=== PATIENT | male | born 1945 | race Caucasian/White ===

== ENCOUNTER 2017-10-26 12:22 | Outpatient (CLI) | payer MEDICARE ==
[2017-10-26 12:53] LABS: Estimated GFR-MDRD - POC Greater than 90
[2017-10-26] MEDS ORDERED: Iopamidol 370 76% 100 ML VIAL ONE (13:21)
--- NOTE | 2017-10-26 14:40 | CT ---
CONTRAST ENHANCED CT CHEST: HISTORY: Patient with previously noted pulmonary nodules. Follow-up CT. TECHNIQUE: A contrast enhanced CT of the chest is performed. Coronal reconstructed images performed. FINDINGS: Images demonstrate a moderate to large hiatal hernia, unchanged since the previous exam. There is a right lower lobe peripheral, pleural-based, nodular density, with a diameter of approximately 6 to 7 mm, unchanged since the previous exam. A second left lower lobe pulmonary nodule is also seen, with a diameter of approximately 6 mm, also stable since the previous exam. No newly developed masses or lesions seen. No significant interval changes noted. No evidence of mediastinal lymphadenopathy see n. IMPRESSION: Right and left lower lobe pulmonary parenchymal nodules, which are stable. No newly developed masses or lesions seen. No other significant interval changes seen. POS: [facility]
== END 2017-10-26 12:23 | disposition home or self-care (01) ==
LOC: CT 12:22
PROVIDERS: ATTEND Internal Medicine Critical Care Medicine
DX: I26.99 Other pulmonary embolism without acute cor pulmonale (principal); R91.8 Other nonspecific abnormal finding of lung field
CPT/HCPCS: 71260; 82565

== ENCOUNTER 2018-11-16 08:40 | Outpatient (CLI) | payer MEDICARE ==
[2018-11-16 09:06] LABS: Estimated GFR-MDRD - POC Greater than 90
--- NOTE | 2018-11-16 11:18 | CT ---
CT OF THE CHEST WITH CONTRAST: COMPARISON: 10/26/2017, 10/21/2016, 08/04/2016. I do not have the exam from 2014. HISTORY: Pulmonary nodule found in 2015. Followup examination. TECHNIQUE: Multiple contiguous axial images were obtained in a CT of the chest with contrast. Coronal reformats were performed. FINDINGS: There is a peripheral nodule in the right lower lobe measuring approximately 7 mm in size on image 33 of 64. This is stable compared to the exam dating back to 2016. There is a nodule in the left lowe r lobe measuring 6 mm in size on image 36 of 64, also stable compared to the exam [id number]. No new p ulmonary nodules are identified. No focal infiltrates are seen. No pneumothorax or pleural effusion are seen. The heart is normal in size. No hilar or mediastinal lymphadenopathy are seen. There is a moderate hiatal hernia. The visualized subdiaphragmatic structures are unremarkable. Degenerative changes are seen in the sp ine. The chest wall soft tissues are unremarkable. IMPRESSION: 1. Stable bilateral pulmonary nodules. These have now been stable for greater than 2 years. No fur ther followup of these nodules is necessary. 2. Hiatal hernia. POS: [facility]
== END 2018-11-16 08:41 | disposition home or self-care (01) ==
LOC: CT 08:40
PROVIDERS: ATTEND Internal Medicine Critical Care Medicine
DX: R91.8 Other nonspecific abnormal finding of lung field (principal); K44.9 Diaphragmatic hernia without obstruction or gangrene
CPT/HCPCS: 71260; 82565